=== PATIENT | male | born 1970 | race Caucasian/White ===

== ENCOUNTER → 2024-06-19 | Day surgery (SDC) | payer MEDICAID, SELFPAY ==
[2024-06-18 14:00] VITALS: BMI 34.2
[2024-06-19] MEDS: SODIUM CHLORIDE 0.9% 500 ML 500 ML 20 ML IV (07:22)
[2024-06-19] MEDS: DiphenhydrAMINE INJ 50 MG/ML VIAL 25 MG IV (07:28)
[2024-06-19] MEDS: fentaNYL CIT INJ 50 mCg/ML AMP 2ML (ASD USE ONLY) IV (07:32)
[2024-06-19] MEDS: MIDAZOLAM INJ 1 MG/ML VIAL 2 ML (ASD USE ONLY) 2 MG IV (07:32)
--- NOTE | 2024-06-19 07:55 | SUR.PREOP ---
[id number] Patient was sent home and procedure was cancelled due to poor prep. Patient's bm were very dirty after enemas, per MD patient to call and reschedule appt with proper bowel prep. Patient was able to verbalize understanding why he was cancelled and his need to call the office for a rescheduled appt. His ride was called to return and pick him up. Patient was able to dress himself and was led to the waiting room to sit and wait for his ride.
== END | disposition home or self-care (01) ==
LOC: SASD 07:31
PROVIDERS: PCP Physician Assistant; Referring Provider Surgery; Visit Provider Surgery
PROC: 0DBE8ZX Excision of Large Intestine, Via Natural or Artificial Opening Endoscopic, Diagnostic (ICD-10-PCS; CPT 45380; principal; 2024-06-19 08:00)
DX: Z12.11 Encounter for screening for malignant neoplasm of colon (principal); Z80.0 Family history of malignant neoplasm of digestive organs; Z53.9 Procedure and treatment not carried out, unspecified reason
CPT/HCPCS: 45378; J1200; J2250; J3010; J7040